=== PATIENT | male | born 1960 | race Caucasian/White ===

== ENCOUNTER → 2018-11-20 | Outpatient (REF) ==
[~2018-11-20] MED LIST: CEPHALEXIN500 MG OR; LORTAB 5/3255 MG PO; LORTAB 7.5 OR; SYMBICORT1 AE1 IN
== END | disposition home or self-care (01) | DRG 951 ==
LOC: LAB 07:34
PROVIDERS: ATTEND Internal Medicine
DX: Z00.00 Encounter for general adult medical examination without abnormal findings (principal); Z12.5 Encounter for screening for malignant neoplasm of prostate